=== PATIENT | female | born 1955 | race Caucasian/White ===

== ENCOUNTER → 2020-09-08 | Outpatient (CLI) | payer BC ==
[~2020-09-08] MED LIST: CIPROFLOXACIN500 MG PO; ZOFRAN4 MG PO
== END | disposition home or self-care (01) ==
LOC: COVID19 15:47
PROVIDERS: ATTEND Physician Assistant Medical
DX: R05 Cough (principal); Z20.828 Contact with and (suspected) exposure to other viral communicable diseases

== ENCOUNTER → 2021-09-01 | Outpatient (CLI) | payer BC | END | disposition home or self-care (01) | LOC: COVID19 17:12 | PROVIDERS: ATTEND Internal Medicine | DX: Z11.52 Encounter for screening for COVID-19 (principal) ==

== ENCOUNTER → 2023-10-27 | Outpatient (CLI) | payer MEDICAID | END | disposition home or self-care (01) | LOC: CARD 01:28 | PROVIDERS: ATTEND Family Medicine | DX: I35.0 Nonrheumatic aortic (valve) stenosis (principal) ==